=== PATIENT | male | born 1945 | race Caucasian/White ===

== ENCOUNTER 2016-05-19 15:26 | Outpatient (CLI) | payer BC ==
[~2016-05-19] VITALS: Ht 165.1 cm; Wt 78.2 kg
[~2016-05-19 15:26] MED LIST: ASP81TEC PO; DILT180C55; DILT300C PO; EZET1TAB36; HYDR-3812 PO; LEVO500T69 PO; LRT10T PO; METH4TAB; MOEX1TAB PO; MOEX1TAB6; MOEX1TAB6 PO; OLME1TAB19 PO; SIMV80TA3 PO
[2016-05-19 15:33] VITALS: BP 149/81
[2016-05-19] MEDS ORDERED: BETH50TA PO (15:40)
[2016-05-19] MEDS ORDERED: SIMV40TA4 PO (15:40)
[2016-05-19] MEDS ORDERED: DILT300C26 PO (15:40)
[2016-05-19] MEDS ORDERED: MV,M1TAB2 PO (15:40)
[2016-05-19] MEDS ORDERED: LISI1TAB8 PO (15:40)
[2016-05-19] MEDS ORDERED: LABE200T3 PO (15:40)
== END 2016-05-19 15:47 | disposition home or self-care (01) ==
LOC: PREOP 15:26
PROVIDERS: ATTEND Urology
DX: Z01.818 Encounter for other preprocedural examination (principal); Z11.2 Encounter for screening for other bacterial diseases
CPT/HCPCS: 87081

== ENCOUNTER 2016-05-26 06:38 | Day surgery (SDC) | payer BC ==
[~2016-05-26] VITALS: Ht 165.1 cm; Wt 78.2 kg
[~2016-05-26 06:38] MED LIST changes: +BETH50TA PO; +DILT300C26 PO; +LABE200T3 PO; +LISI1TAB8 PO; +MV,M1TAB2 PO; +SIMV40TA4 PO
[2016-05-26] MEDS ORDERED: LACTATED RINGERS 1,000 ML IV PRN (06:53)
[2016-05-26] MEDS ORDERED: MIDAZOLAM 2 MG/2 ML (VERSED) VIAL ONE (06:58)
[2016-05-26] MEDS ORDERED: proPOfol 200 MG/20 ML (DIPRIVAN) VIAL IV ONE (06:58)
[2016-05-26] MEDS ORDERED: ROCURONIUM 50 MG/5 ML (ZEMURON) VIAL IV ONE (06:58)
[2016-05-26] MEDS ORDERED: fentaNYL INJECTION 100 MCG/2 ML AMP ONE (06:58)
[2016-05-26] MEDS ORDERED: LACTATED RINGERS 1,000 ML IV ONE (06:58)
[2016-05-26] MEDS ORDERED: LIDOCAINE PF 2% 10 ML (XYLOCAINE) AMP ONE (06:58)
[2016-05-26] MEDS ORDERED: ONDANSETRON 4 MG/2 ML (SDV) Z0FRAN ONE (06:58)
[2016-05-26 07:05] VITALS: BP 140/83
--- NOTE | 2016-05-26 07:09 | Progress Note-Pre Operative ---
Pre-Operative Progress Note H&P Reviewed The H&P was reviewed, patient examined and no changes noted. Date H&P Reviewed: May 26, 2016 Time H&P Reviewed: 07:08 Pre-Operative Diagnosis: SARAH BADILLO MD May 26, 2016 7:09 am
--- NOTE | 2016-05-26 07:10 | Progress Note-Post Operative ---
Post-Operative Progess Note Surgeon (s)/Insole Tacker (s) Surgeon SARAH FRAIRE MD Insole Tacker: N/A Pre-Operative Diagnosis BNC AND NEUROGENIC BLADDER Post-Operative Diagnosis SAME Post-Op Procedure Note Date of Procedure: May 26, 2016 Name of Procedure Performed: TU INCISION AND RESECTION OF BNC Description of the Procedure: PER DICTATION Findings of the Procedure SAME Anesthesia Type GENERAL Estimated blood loss (mL): NEGLIGIBLE Specimen(s) collected/removed BNC CHIPS SARAH FRAIRE MD May 26, 2016 7:10 am
--- NOTE | 2016-05-26 07:12 | Discharge Inst-Urology ---
Discharge Inst-Urology Discharge Medications New, Converted, or Re-newed RX: RX on Chart Patient Instructions/Follow Up Plan Discharge with leg bag day time and large bag night time with instructions. To come to office 9am to [facility] [place] Please make appointment to been seen in office in 4 weeks. Wednesday if no bleeding, may resume ASA Increase oral fluids for 48 hours and then as needed. Diet and Activity as tolerated. If questions or concerns contact your physician Or seek help at emergency department. SARAH FRAIRE MD May 26, 2016 7:12 am
[2016-05-26] MEDS ORDERED: cefTRIAXone 1 GM/NS 50 ML IVPB IV ONE ×2 (07:15)
[2016-05-26] MEDS ORDERED: CATHETER FLUSH 10 ML SYR IV PRN (07:15)
[2016-05-26] MEDS ORDERED: SEVOFLURANE (ULTANE) 15 ML INHAL SOLN ONE (08:06)
[2016-05-26] MEDS ORDERED: morphine INJ 10 MG/ML 1ML (SYR OR VIAL) IVP PRN (08:30)
[2016-05-26] MEDS ORDERED: ONDANSETRON 4 MG/2 ML (SDV) Z0FRAN IVP PRN (08:30)
[2016-05-26] MEDS ORDERED: LEVO500T2 PO (08:58)
[2016-05-26] MEDS ORDERED: PHEN-640 PO (08:58)
[2016-05-26 09:15] VITALS: BP 137/70
[2016-05-26 09:45] VITALS: BP 135/74
--- NOTE | 2016-05-26 10:04 | OPERATIVE REPORT ---
PROCEDURE PHYSICIAN: SARAH FRAIRE DATE OF PROCEDURE: 05/26/2016 PREOPERATIVE DIAGNOSIS: Bladder neck contracture. POSTOPERATIVE DIAGNOSIS: Bladder neck contracture. OPERATION: Transurethral incision and resection of bladder neck contracture. SURGEON: Dr. Fraire. ANESTHESIA: General. COMPLICATIONS: None. PROCEDURE: Under satisfactory general anesthesia, the patient in lithotomy position, the genitalia were prepped and draped in usual sterile fashion. A 26-Polish Biotectix resectoscope was inserted and the bladder neck contracture was observed. It was incised at 4 and 7 o'clock positions and then resected as well to completely open the bladder neck for the patient. Bleeders were cauterized and hemostasis complete. The bladder neck contracture chips were evacuated. Cystoscopy confirmed intact orifices, and VERU and sphincter, good reflex. The resectoscope was removed and (s/l sounds) were passed to number 30 Polish easily. A 20-Polish, 2-way 5 mL balloon catheter was inserted in the bladder. The balloon inflated 10 mL, connected to dependent drainage, the return of which was clear. Estimated blood loss negligible. The patient tolerated the procedure and anesthesia well and was sent to recovery room in stable condition. Job ID: [id number] Dictated Date: 05/26/2016 08:17:55 Shoulder Pad Molder Date: 05/26/2016 10:00:05 / josias
[2016-05-26 10:15] VITALS: BP 135/86
[2016-05-26 11:30] VITALS: BP 135/86
--- NOTE | 2016-06-02 07:55 | CONSULTATION REPORT ---
DATE OF SERVICE: 05/26/2016 REFERRING PHYSICIAN: Dr. Bal Simpson. INDICATION FOR THE CONSULTATION: Atrial flutter. HISTORY OF PRESENT ILLNESS: The patient is a 70-year-old white male who had undergone transurethral incision and resection of bladder neck contracture for obstructive uropathy this morning. He was noted to be in atrial flutter predominantly with a 4:1 block and a heart rate in the 60s. His vital signs were stable. I saw him in postop recovery. He denied any problems in the recent past or today with palpitations, heart racing, presyncope, syncope, increased dyspnea on exertion or chest discomfort. He has no known past history of atrial flutter or atrial fibrillation. He has no known history of coronary artery disease. In the postoperative recovery area he was alert and oriented. He was hoping to go home. REVIEW OF SYSTEMS: On further cardiac review of systems he has had no increased dyspnea on exertion, orthopnea, PND or pedal edema. He was noted to have an elevated creatinine level over his baseline which was how his last episode of obstructive uropathy presented in 2001 when he underwent transurethral resection of the prostate. Previous to that renal function had been normal despite longstanding hypertension. Following that time his creatinine levels over the past 2 years have ranged from 1.2 to 1.4. He was not sure what his last and likely highest creatinine level was. As was the case last time he had not noted or reported significant decrease in stream or increase in frequency. SOCIAL HISTORY: He is retired. He has distant past smoking history. He has approximately 6-pack-year history of smoking but quit in 1970. He does report social alcohol intake but well within moderation standards. PAST MEDICAL HISTORY: Hypertension, hyperlipidemia. He has no known history of vascular disease. PAST SURGICAL HISTORY: Laparoscopic appendectomy per Dr. Osorio in 2008 and previous transurethral resection of the prostate by Dr. Simpson in 2001. MEDICATIONS ON ADMISSION: Include diltiazem 300 mg daily, labetalol 200 mg b.i.d. as well as lisinopril 20/12.5 daily in addition to simvastatin 40 mg daily. PHYSICAL EXAMINATION: GENERAL: The patient is a white male who appeared to be in no acute distress. SKIN: Coloration is normal. VITAL SIGNS: Blood pressure is 130/82, heart rate was 66 and regular, flutter waves were noted on telemetry strip. NECK: No JVD, adenopathy or bruits. CHEST: Clear. CARDIOVASCULAR: Revealed a regular rate and rhythm without murmur, S3 or S4. EXTREMITIES: Reveal no cyanosis, clubbing or edema. IMAGING DATA: EKG was obtained which revealed atrial flutter with 4:1 block. There was borderline prolongation of the QT interval. ASSESSMENT AND PLAN: Atrial flutter of likely recent onset although considering the fact that the patient is asymptomatic it is difficult to tell. The patient is scheduled to follow up with me in 1 week. Considering 4:1 block we will have him hold his diltiazem and continue labetalol for now. We will likely be adding it back when I see him back in one week. He was told that if his blood pressure goes over 150/90 or if he is having heart rates over 100 at home on his blood pressure monitor to resume diltiazem. He was set up for an echocardiogram. We will be obtaining repeat basic metabolic panel in addition to TSH on his return. echo- cardiogram was ordered as well. Job ID: [id number] DocumentID: [id number] Dictated Date: 06/01/2016 21:19:39 Real Estate Marketing Coordinator Date: 06/02/2016 00:45:31 Dictated By: CAMERON SALCEDO MD [facility]
== END 2016-05-26 11:30 | disposition home or self-care (01) ==
LOC: SDC 06:38
PROVIDERS: ATTEND Urology
DX: N32.0 Bladder-neck obstruction (principal)
CPT/HCPCS: 88305; 93005

== ENCOUNTER → 2016-05-29 | Outpatient (CLI) | payer BC ==
[~2016-05-29] MED LIST changes: +LEVO500T2 PO; +PHEN-640 PO
--- NOTE | 2016-06-03 08:19 | ECHOCARDIOGRAPHY REPORT ---
DATE OF SERVICE: 05/29/2016 PROCEDURE: ECHOCARDIOGRAM SUMMARY INDICATION FOR THE PROCEDURE: New onset atrial flutter, history of hypertension. MEASUREMENTS: LV diameter end-diastolic is 3.3, systolic is 2.2, IVS thickness is 0.9, LV posterior wall thickness is 1.0, LA diameter is 3.9, ejection fraction 0.65, fractional shortening 0.35. COMMENTS AND RECOMMENDATIONS: 1. Fair technical quality. 2. Biventricular systolic function is normal with estimated left ventricular ejection fraction of 65%. The patient was in atrial flutter with variable ventricular response. 3. Mild mitral annular calcification is present with mild mitral insufficiency. Trace tricuspid insufficiency is present with an RV systolic pressure estimated at 25 mmHg. 4. Left atrium is upper limits of normal for size. Other cardiac chamber dimensions are well within normal limits. 5. Pulmonary valve is not well visualized. No significant mitral or tricuspid valve abnormalities are noted. The aortic valve is minimally sclerotic with normal leaflet mobility and no evidence for insufficiency. 6. There is no evidence of intracardiac shunt. 7. There is no evidence of pericardial effusion. 8. No intracardiac mass, thrombus or formation are visualized. ASSESSMENT: Biventricular systolic function is normal with an estimated left ventricular ejection fraction of 65%. LV wall thickness is within normal limits. The left atrium is at the upper limits of normal for size. Other cardiac chamber dimensions are within normal limits. Mild mitral and trace tricuspid insufficiency are present with an estimated RV systolic pressure of 25 mmHg. The patient was in atrial flutter during the procedure with variable ventricular block, Heart rate ranged anywhere from the 60 to low 100 beats per minute. Job ID: [id number] DocumentID: [id number] Dictated Date: 06/02/2016 12:54:01 Leaf Binner Date: 06/02/2016 13:08:19 Dictated By: MD CHRISTI SMITH
== END ==
LOC: CARD 13:53
PROVIDERS: ATTEND Internal Medicine
DX: I48.92 Unspecified atrial flutter (principal)
CPT/HCPCS: 93306

== ENCOUNTER → 2017-02-25 | Outpatient (CLI) | payer BC ==
[~2017-02-25] MED LIST changes: +ACHD5005 PO; +CATHETER FLUSH 10 ML SYR IV PRN; -HYDR-3812 PO; +REGADENOSON 0.4 MG/5 ML SYR (LEXISCAN) IV ONE
[2017-02-25 09:25] VITALS: BP 149/75
[2017-02-25 09:28] VITALS: BP 151/69
[2017-02-25 09:31] VITALS: BP 135/71
== END ==
LOC: CARD 07:34
PROVIDERS: ATTEND Internal Medicine Interventional Cardiology
DX: I48.92 Unspecified atrial flutter (principal); I10 Essential (primary) hypertension
CPT/HCPCS: 78452; 93017

== ENCOUNTER 2017-03-11 08:40 | Day surgery (SDC) | payer BC ==
[~2017-03-11] VITALS: Ht 165.1 cm; Wt 77.1 kg
[~2017-03-11 08:40] MED LIST changes: -CATHETER FLUSH 10 ML SYR IV PRN; -REGADENOSON 0.4 MG/5 ML SYR (LEXISCAN) IV ONE
--- OUTSIDE RECORDS SUMMARY | 2017-03-11 08:45 | XMS REPORT | Continuity of Care Document ---
Author Author [facility] Organization [facility] Address Unknown Phone Unavailable Allergies Active Description Code Type Severity Reaction Onset Reported/Identified Relationship to Patient Clinical Status Yes No Known Drug Allergies [id number] Drug Allergy Unknown N/A 12/06/2008 Medications There is no data. Problems Date Dx Coded Attending Type Code Diagnosis Diagnosed By 09/23/2009 Ot 708.9 09/23/2009 Ot 782.1 10/31/2009 Ot 780.4 10/11/2011 Ot 891.0 OPEN WND KNEE /LEG/ANKLE 10/11/2011 Ot E000.8 OTHER EXTERNAL CAUSE STATUS 10/11/2011 Ot E016.9 OTH ACT INVG PROPERTY LAND MAINT,BUILD 10/11/2011 Ot E849.0 ACCIDENT IN HOME 10/11/2011 Ot E920.8 ACC-CUTTING INSTRUM NEC 10/11/2011 Ot V06.1 DIPHTHERIA- TETANUS-PERTUSSIS, COMBINED [ 06/06/2014 Ot 789.00 06/06/2014 Ot 388.30 06/06/2014 Ot 785.9 08/30/2014 DENISSE COOL, CAMERON Fishman Ot 401.9 08/30/2014 DENISSE COOL, CAMERON Fishman Ot 786.59 08/30/2014 DENISSE COOL, CAMERON Fishman Ot 789.00 02/24/2015 SARAH GUAMAN Ot M19.021 PRIMARY OSTEOARTHRITIS, RIGHT ELBOW 02/24/2015 SARAH GUAMAN Ot S50.01XA CONTUSION OF RIGHT ELBOW, INITIAL ENCOUN 02/24/2015 SARAH GUAMAN Ot X58.XXXA EXPOSURE TO OTHER SPECIFIED FACTORS, INI 02/24/2015 SARAH GUAMAN Ot Y92.[address] IN [facility] NON-INSTITUT (PRIVATE 02/24/2015 SARAH GUAMAN Ot Y99.8 OTHER EXTERNAL CAUSE STATUS 01/29/2016 Ot 388.30 TINNITUS NOS 01/29/2016 Ot 785.9 CARDIOVAS SYS SYMP NEC 05/19/2016 SARAH FRAIRE MD Ot Z01.818 ENCOUNTER FOR OTHER PREPROCEDURAL EXAMIN 05/19/2016 YEE COOL, SARAH Clayton Ot Z11.2 ENCOUNTER FOR SCREENING FOR OTHER BACTER 05/20/2016 DENISSE COOL, CAMERON Fishman Ot 401.9 HYPERTENSION NOS 05/20/2016 DENISSE COOL, CAMERON Fishman Ot 786.59 CHEST PAIN NEC 05/20/2016 CAMERON SALCEDO MD Ot 789.00 ABDOMINAL PAIN, UNSPECIFIED SITE 05/20/2016 SARAH FRAIRE MD Ot Z01.818 ENCOUNTER FOR OTHER PREPROCEDURAL EXAMIN 05/20/2016 SARAH FRAIRE MD Ot Z11.2 ENCOUNTER FOR SCREENING FOR OTHER BACTER 05/26/2016 SARAH FRAIRE MD Ot N32.0 BLADDER-NECK OBSTRUCTION 05/27/2016 SARAH FRAIRE MD Ot N32.0 BLADDER-NECK OBSTRUCTION 06/03/2016 ASRAH FRAIRE MD Ot N32.0 BLADDER-NECK OBSTRUCTION 06/10/2016 CAMERON SALCEDO MD Ot I48.92 UNSPECIFIED ATRIAL FLUTTER 02/22/2017 CAMERON SALCEDO MD Ot 401.9 HYPERTENSION NOS 02/22/2017 CAMERON SALCEDO MD Ot 786.59 CHEST PAIN NEC 02/22/2017 CAMERON ASLCEDO MD Ot 789.00 ABDOMINAL PAIN, UNSPECIFIED SITE 02/22/2017 CAMERON SALCEDO MD Ot I48.92 UNSPECIFIED ATRIAL FLUTTER 02/26/2017 Pedro LEWIS MD Ot I10 ESSENTIAL (PRIMARY) HYPERTENSION 02/26/2017 Pedro LEWIS MD Ot I48.92 UNSPECIFIED ATRIAL FLUTTER Procedures Code Description Performed By Performed On 47.01 LAPAROSCOP APPENDECTOMY 12/06/2008 57.92 BLADDER NECK DILATION 12/06/2008 57.94 INSERT INDWELLING CATH 12/06/2008 57.32 CYSTOSCOPY NEC 12/10/2008 Results Test Result Range Methicillin resistant Staphylococcus aureus (MRSA) screening culture - 15:43 Methicillin resistant Staphylococcus aureus (MRSA) screening culture NEG NRG Encounters ACCT No. Visit Date/Time Discharge Status Pt. Type Provider Facility Loc./Unit Complaint [id number] 02/25/2017 07:34:00 02/25/2017 23:59:59 CLS Outpatient Pedro LEWIS MD [facility] CARD I48.92,I10 [id number] 05/29/2016 13:53:00 05/29/2016 23:59:59 CLS Outpatient CAMERON SALCEDO MD [facility] CARD I48 [id number] 05/26/2016 06:38:00 05/26/2016 11:30:00 DIS Outpatient SARAH FRAIRE MD [facility] SDC BLADDER NECK CONTRACTURE [id number] 05/19/2016 15:26:00 05/19/2016 15:47:00 DIS Outpatient SARAH FRAIRE MD [facility] PREOP BLADDER NECK CONTRACTURE [id number] 02/24/2015 16:45:00 02/24/2015 18:14:00 DIS Emergency CARLOS PASARAH [facility] ER FALL/R ARM SWELLING [id number] 08/13/2014 11:10:00 08/13/2014 23:59:59 CLS Outpatient CAMERON SALCEDO MD [facility] CARD CHEST DISCOMFORT, ATH [id number] 03/11/2017 10:00:00 PEN Preadmit Pedro LEWIS MD [facility] CATH ATRIAL FLUTTER [id number] 06/06/2014 15:18:00 Document Registration [id number] 10/11/2011 13:47:00 Document Registration [id number] 05/15/2011 09:41:00 Document Registration [id number] 10/31/2009 09:25:00 Document Registration [id number] 09/22/2009 23:58:00 Document Registration [id number] 05/07/2009 10:53:00 Document Registration
[2017-03-11] MEDS ORDERED: NS IV 1000 ML 1,000 ML ONE (08:48)
[2017-03-11 08:56] VITALS: BP 158/81
[2017-03-11] MEDS ORDERED: NS IV 1000 ML 1,000 ML IV SCH (09:00)
[2017-03-11] MEDS ORDERED: proPOfol 200 MG/20 ML (DIPRIVAN) VIAL IV ONE (09:20)
[2017-03-11] MEDS ORDERED: MIDAZOLAM 5 MG/5 ML (VERSED) VIAL ONE (09:20)
[2017-03-11] MEDS ORDERED: APIX5TAB PO (09:29)
[2017-03-11 09:45] VITALS: BP 115/68
[2017-03-11 09:51] VITALS: BP 108/84
[2017-03-11 09:55] VITALS: BP 121/83
[2017-03-11 09:58] VITALS: BP 124/71
--- NOTE | 2017-03-11 10:02 | Progress Note-Standard ---
Standard Progress Note Progress Notes/Assess & Plan Time Seen by Provider: 09:40 Final Diagnosis Consulted for sedation during cardioversion per Dr. Chacon. History obtained, supplies at bedside. Propofol 80 mg. IV. Tolerated procedure well. Report to wheelabrator operator RN, care assumed. SOPHY RUIZ CRNA Mar 11, 2017 10:02
[2017-03-11 10:16] VITALS: BP 134/80
--- NOTE | 2017-03-11 19:52 | Cardioversion ---
Cardioversion PROCEDURE PHYSICIAN: Rashid Chacon MD DATE OF PROCEDURE: 03/11/17 DIRECT EXTERNAL ELECTRICAL CARDIOVERSION: Indications: Atrial Fibrillation with rapid ventricular rate Preoperative diagnoses: Atrial Fibrillation with rapid ventricular rate Postoperative diagnosis: Sinus rhythm, Successful Electrical Cardioversion History: This is a 71-year-old gentleman with atrial fibrillation with rapid ventricular rate. He has been on oral Anticoagulation for at least more than a month. External electrical cardioversion is recommended. 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 Electrical cardioversion was carried out with anesthesia support with propofol. 200 joules of synchronized shock was delivered through external patches which promptly restored sinus rhythm. The patient tolerated the procedure well. Conclusions: 1.Successful Cardioversion. 2.Continue oral anticoagulation and rate controlling agent. 3.Follow up in office in 7 days. Rashid Chacon MD, RS, CCDS Cardiac Electrophysiology Pedro CHACON MD Mar 11, 2017 7:52 pm
== END 2017-03-11 10:21 | disposition home or self-care (01) ==
LOC: CATH 08:40
PROVIDERS: ATTEND Internal Medicine Interventional Cardiology
DX: I48.0 Paroxysmal atrial fibrillation (principal); I10 Essential (primary) hypertension; E78.5 Hyperlipidemia, unspecified; Z79.899 Other long term (current) drug therapy
CPT/HCPCS: 92960; 93005

== ENCOUNTER 2018-04-25 11:08 | Outpatient (RCR) | payer MEDICARE ==
[~2018-04-25 11:08] MED LIST changes: +APIX5TAB PO; -LABE200T3 PO; +LABE200T7 PO
== END 2018-07-24 | disposition home or self-care (01) ==
LOC: CARD 11:08
PROVIDERS: ATTEND Internal Medicine Interventional Cardiology
DX: E78.5 Hyperlipidemia, unspecified (principal); I10 Essential (primary) hypertension; I48.0 Paroxysmal atrial fibrillation; I48.3 Typical atrial flutter

== ENCOUNTER → 2021-07-10 | Outpatient (CLI) | payer MEDICARE ==
[~2021-07-10] MED LIST changes: -BETH50TA PO; +BETH50TA2 PO; +LISI1TAB46 PO; -LISI1TAB8 PO; +SIMV40TA25 PO; -SIMV40TA4 PO
== END ==
LOC: CARD 14:00
PROVIDERS: ATTEND Internal Medicine
DX: I48.91 Unspecified atrial fibrillation (principal)
CPT/HCPCS: 93005